=== PATIENT | female | born 1955 | race African-American/Black ===

== ENCOUNTER → 2017-01-03 | Outpatient (CLI) | payer MEDICARE ==
[~2017-01-03] MED LIST: BUPIVACAINE MPF 0.25% 10 ML VIAL. ONE; DEXAMETHASONE SOD PHOS 4 MG/ML VIAL ONE; LIDOCAINE 1% PF 30 ML VIAL. ONE
== END | disposition home or self-care (01) ==
LOC: SURG 12:33
PROVIDERS: ATTEND Anesthesiology
DX: M46.96 Unspecified inflammatory spondylopathy, lumbar region (principal); J45.909 Unspecified asthma, uncomplicated; I10 Essential (primary) hypertension; M19.91 Primary osteoarthritis, unspecified site; Z72.0 Tobacco use
CPT/HCPCS: 64635; 64636; 82947; J1100; J2001; J3490

== ENCOUNTER → 2017-01-17 | Outpatient (CLI) | payer MEDICARE ==
[~2017-01-17] MED LIST changes: +IV NORMAL SALINE 250ML 250 ML ONE; +LIDOCAINE (700MG/PATCH) PATCH. ONE; +MIDAZOLAM HCL PF 2 MG/2 ML VIAL. ONE
== END | disposition home or self-care (01) ==
LOC: SURG 11:51
PROVIDERS: ATTEND Anesthesiology
DX: M47.816 Spondylosis without myelopathy or radiculopathy, lumbar region (principal); I10 Essential (primary) hypertension; M19.90 Unspecified osteoarthritis, unspecified site; J45.909 Unspecified asthma, uncomplicated; F17.200 Nicotine dependence, unspecified, uncomplicated
CPT/HCPCS: 64635; 64636; 82947; J1100; J2001; J2250; J3010; J3490; J7050

== ENCOUNTER → 2018-10-03 | Outpatient (CLI) | payer MEDICARE, OTHER | END | disposition home or self-care (01) | LOC: SURG 08:56 | PROVIDERS: ATTEND Anesthesiology Pain Medicine | DX: M79.605 Pain in left leg (principal); I10 Essential (primary) hypertension; E11.9 Type 2 diabetes mellitus without complications; K21.9 Gastro-esophageal reflux disease without esophagitis; J45.909 Unspecified asthma, uncomplicated; Z91.018 Allergy to other foods; Z79.899 Other long term (current) drug therapy | CPT/HCPCS: 99214 ==

== ENCOUNTER → 2018-10-03 | Outpatient (CLI) | payer OTHER ==
--- NOTE | 2018-10-03 16:03 | RAD ---
EXAM: HIP LEFT 2 VIEW. HISTORY: Left hip pain. COMPARISON: None. FINDINGS: No fractures are identified. The joint spaces and alignment of the left hip are maintained. IMPRESSION: 1. No fracture or clear degenerative change. Electronically signed by: Sumit Tayolr MD (10/03/2018 4:00 PM) [facility]
== END | disposition home or self-care (01) ==
LOC: DXRAD 09:49
PROVIDERS: ATTEND Anesthesiology Pain Medicine
DX: M25.552 Pain in left hip (principal)
CPT/HCPCS: 73502

== ENCOUNTER → 2020-01-03 | Outpatient (CLI) | payer BC, MEDICARE ==
--- NOTE | 2020-01-03 13:34 | RAD ---
Cervical spine 4 views: Reason for examination: Upper back pain and chronic low back pain. The vertebral bodies of the cervical spine are normally aligned anteriorly and posteriorly. The odontoid process appears to be intact and normally centered between the lateral masses of C1. Posterior elements are intact. The intervertebral discs are maintained. There is a small ossific density anterior to the C5-6 disc space which has a corticated chronic appearance. Prevertebral soft tissues are normal. IMPRESSION: No acute abnormality in the cervical spine. Lumbar spine 3 views: The vertebral bodies of the lumbar spine are normally aligned anteriorly and posteriorly. No acute fracture or subluxation is seen. Posterior elements appear to be intact. There are however some degenerative changes with hypertrophic spurring and mild loss of disc height at the L3-4, L4-5 and L5-S1 disc levels. No abnormality seen at the sacrum or sacroiliac joints. IMPRESSION: Degenerative changes from L3 through S1 with mild loss of disc height. No acute abnormality in the lumbar spine. Electronically signed by: Veronica Carroll MD (01/03/2020 1:31 PM) [facility]
== END | disposition home or self-care (01) ==
LOC: PMG 09:08
PROVIDERS: ATTEND Family Medicine
DX: M47.817 Spondylosis without myelopathy or radiculopathy, lumbosacral region (principal); M54.2 Cervicalgia; G89.29 Other chronic pain
CPT/HCPCS: 72040; 72100

== ENCOUNTER 2020-03-12 15:52 | Emergency (ER) | payer BC, MEDICARE ==
[~2020-03-12] VITALS: Ht 162.6 cm; Wt 75.9 kg
[2020-03-12 15:55] VITALS: BP 132/65
--- NOTE | 2020-03-12 16:34 | PHYS DOC ---
Adult General Chief Complaint Chief Complaint: LOWER EXT PAIN [facility] HPI Patient is a 64-year-old AA female who presents to the emergency department with complaints of left foot pain after she fell down 5 steps today. Patient states that her foot is swollen and tender to touch. She denies any ankle pain, knee pain, or hip pain. Patient states she is not able to bear weight because of the pain. She reports that she has small abrasions to her bilateral knees but but denies any decreased range of motion of her knees. She denies any head, neck, or back pain. She currently rates her pain 10 out of 10 on the pain scale, she denies any alleviating factors, the pain is worse with weightbearing and movement. (ASHIA GRAVES APRN) Review of Systems Review of Systems Complete review of systems is negative unless otherwise documented in the HPI (ASHIA GRAVES APRN) Physical Exam Physical Exam Physical exam as documented below this line.. Constitutional: Well developed, well nourished, no acute distress, non-toxic appearance. [] HENT: Normocephalic, atraumatic, bilateral external ears normal, nose normal. [] Eyes: PERRLA, EOMI, conjunctiva normal, no discharge. [] Neck: Normal range of motion, no stridor. [] Cardiovascular:Heart rate regular rhythm Lungs & Thorax: Respirations even and unlabored, no retractions, no respiratory distress Skin: Warm, dry, no erythema, no rash; abrasions to bilateral without any bleeding [] Extremities: Left foot: Tenderness to palpation over the midfoot, no crepitus, no obvious deformity, 1+ edema, 2+ palpable pulse, no cyanosis, ROM intact Neurologic: Alert and oriented X 3, no focal deficits noted. [] Psychologic: Affect normal, judgement normal, mood normal. [] (ASHIA GRAVES APRN) EKG EKG [] (ISAI BAKER DO) Radiology/Procedures Radiology/Procedures [] (ISAI BAKER DO) Radiology/Procedures PROCEDURE: FOOT LEFT 3V Three-view left foot radiographs 03/12/2020 CLINICAL HISTORY: Left foot pain after falling. AP, lateral and oblique digital radiographs of the left foot were obtained. No fracture or dislocation of the left foot is seen. Mild to moderate degenerative changes are seen throughout the interphalangeal joints and first MTP joint of the left foot. Moderate enthesophyte formation is seen involving the posterior left calcaneus. IMPRESSION: No fracture or dislocation of the left foot is seen. (ASHIA GRAVES APRN) Heart Score Risk Factors: Risk Factors: DM, Current or recent (<one month) smoker, HTN, HLP, family history of CAD, obesity. Risk Scores: Risk Factors: DM, Current or recent (<one month) smoker, HTN, HLP, family history of CAD, obesity. (ISAI BAKER DO) Course & Med Decision Making Course & Med Decision Making Discussed case with LEADING FIREFIGHTER, I agree to note and plan as written (ISAI BAKER DO) Dragon Disclaimer Dragon Disclaimer This electronic medical record was generated, in whole or in part, using a voice recognition dictation system. (ISAI BAKER DO) Attending Co-Sign The patient was seen and interviewed as well as examined at the bedside. The chart was reviewed. The case was discussed. Agree with the plan of care. (ISAI BAKER DO) Attending Co-Sign The patient was seen and interviewed as well as examined at the bedside. The chart was reviewed. The case was discussed. Agree with the plan of care. (MT MTZ DO) Departure Departure: Impression: Primary Impression: Contusion of left foot, initial encounter Additional Impression: Acute pain of left foot Disposition: 01 DC HOME SELF CARE/HOMELESS Condition: STABLE Referrals: CHON ROSAS MD (PCP) AL SANCHEZ MD Patient Instructions: Foot Contusion, [id number] Additional Instructions: Fill prescription(s) and use as directed. Recommend application of ice, elevation, and rest of affected extremity. Use the crutches that were provided for ambulation, weightbearing as tolerated. Wear the Bipin wrap and postop shoe that were applied until follow-up appointment with your primary care doctor or Dr. Sanchez, call in the morning to make an appointment for next week. Return to the ER if your symptoms worsen. Scripts Naproxen (NAPROXEN) 500 Mg Tablet 1 TAB PO BID for pain for 10 Days, #20 TAB 0 Refills Prov: ASHIA GRAVES APRN 03/12/20 Problem Qualifiers ISAI BAKER DO Mar 12, 2020 16:34 ASHIA GRAVES APRN Mar 12, 2020 19:48 MT MTZ DO Mar 12, 2020 23:14
--- NOTE | 2020-03-12 19:38 | RAD ---
Three-view left foot radiographs 03/12/2020 CLINICAL HISTORY: Left foot pain after falling. AP, lateral and oblique digital radiographs of the left foot were obtained. No fracture or dislocation of the left foot is seen. Mild to moderate degenerative changes are seen throughout the interphalangeal joints and first MTP joint of the left foot. Moderate enthesophyte formation is seen involving the posterior left calcaneus. IMPRESSION: No fracture or dislocation of the left foot is seen. Electronically signed by: Dieter Michelle MD (03/12/2020 7:35 PM) [id number]
[2020-03-12] MEDS ORDERED: NAPROXEN 500 MG TABLET PO ONE (19:45)
[2020-03-12] MEDS ORDERED: NAPR-514 PO (19:47)
== END 2020-03-12 20:10 | disposition home or self-care (01) ==
LOC: ER 15:52
DX: S90.32XA Contusion of left foot, initial encounter (principal); S80.212A Abrasion, left knee, initial encounter; S80.211A Abrasion, right knee, initial encounter; W10.8XXA Fall (on) (from) other stairs and steps, initial encounter; Y93.89 Activity, other specified; Y92.89 Other specified places as the place of occurrence of the external cause; Y99.8 Other external cause status
CPT/HCPCS: 73630; 99283; 99284

== ENCOUNTER → 2020-04-03 | Outpatient (CLI) | payer MEDICARE ==
[2020-03-12 15:55] VITALS: BP 132/65
[~2020-04-03] MED LIST changes: -BUPIVACAINE MPF 0.25% 10 ML VIAL. ONE; -DEXAMETHASONE SOD PHOS 4 MG/ML VIAL ONE; -IV NORMAL SALINE 250ML 250 ML ONE; -LIDOCAINE (700MG/PATCH) PATCH. ONE; -LIDOCAINE 1% PF 30 ML VIAL. ONE; -MIDAZOLAM HCL PF 2 MG/2 ML VIAL. ONE; +NAPR-514 PO
--- NOTE | 2020-04-03 18:12 | RAD ---
EXAM: HAND RIGHT 3V 04/03/2020 12:00 AM CLINICAL INDICATION:Chronic Palm pain. No known injury. COMPARISON:None TECHNIQUE:3 views of the right hand FINDINGS:No acute fracture or malalignment. Bone mineralization is normal. Small supply to the thumb interphalangeal joint and second metacarpal head. Questionable small erosion at the second metacarpal head. No focal soft tissue abnormality. 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 No soft tissue abnormality. Electronically signed by: Lynda Beard MD (04/03/2020 6:09 PM) [id number]
== END ==
LOC: RAD 11:33
PROVIDERS: ATTEND Family Medicine
DX: M19.041 Primary osteoarthritis, right hand (principal)
CPT/HCPCS: 73130

== ENCOUNTER → 2020-07-09 | Outpatient (CLI) | payer MEDICARE, BC ==
[~2020-07-09] MED LIST changes: +IOHEXOL 240 MG/ML 50ML VIAL. ONE; +IOHEXOL 300 MG/ML 75 ML VIAL. IV ONE
[2020-07-09] MEDS: IOHEXOL 240 MG/ML 50ML VIAL. PO ONE (11:30)
[2020-07-09 11:39] LABS: HEMOGLOBIN ISTAT 13.3 gm/dL; POTASSIUM ISTAT 4.3 mmol/L (3.5-5.0)
[2020-07-09] MEDS: IOHEXOL 350 MG/ML 100 ML VIAL. IV ONE (12:11)
--- NOTE | 2020-07-09 12:30 | RAD ---
EXAM: Abdomen and pelvis CT with intravenous contrast. HISTORY: Flank pain. TECHNIQUE: Computed tomographic images of the abdomen and pelvis were obtained following the administ ration of intravenous contrast. Multiplanar reformatting was performed. *One or more of the following individualized dose reduction techniques were utilized for this examina tion: 1. Automated exposure control. 2. Adjustment of the mA and/or kV according to patient size. 3. Use of iterative reconstruction technique. COMPARISON: None. FINDINGS: Evaluation of the lower thorax demonstrates minimal left basilar atelectasis or scarring. T here is no infiltrate or pleural effusion. No suspicious hepatic lesion is seen. There is fatty infil tration of the liver along the falciform ligament. The gallbladder is unremarkable. There is a slight ly prominent downstream pancreatic duct. No pancreatic lesion is seen. The spleen, stomach and adrenal glands are unremarkable. There are 10 mm and [address] within the right kidney. There is a prominent bilateral renal collecting system. There is no estefanía hydronephrosis. There is a calcification along the course of the distal right ureter which is vascul ar in appearance. There is moderate colonic stool. There are few distal colonic diverticula. There is no evidence of cary wel obstruction. There is a tortuous abdominal aorta. There is no lymphadenopathy. The bladder, uteru s and adnexal regions are unremarkable. There is degenerative change throughout the visualized spine. There is no acute or suspicious osseous lesion. IMPRESSION: 1. No convincing acute abdominal or pelvic finding. 2. Prominent lateral renal collecting system likely due to the hydration status of patient. No convin cing obstructing lesion is seen. There are small double appearing right renal cyst. Follow-up is not routinely recommended for simple cysts. 3. Distal colonic diverticulosis. Electronically signed by: Namrata Lobato MD (07/09/2020 12:27 PM) [id number]
== END ==
LOC: CT 10:55
PROVIDERS: ATTEND Family Medicine
DX: K57.30 Diverticulosis of large intestine without perforation or abscess without bleeding (principal); N28.1 Cyst of kidney, acquired
CPT/HCPCS: 36415; 74177; 80047; Q9966; Q9967

== ENCOUNTER 2021-09-19 16:50 | Emergency (ER) | payer MEDICARE, MEDICAID ==
[~2021-09-19] VITALS: Ht 162.6 cm; Wt 75.9 kg
[~2021-09-19 16:50] MED LIST changes: -IOHEXOL 240 MG/ML 50ML VIAL. ONE; -IOHEXOL 300 MG/ML 75 ML VIAL. IV ONE
--- NOTE | 2021-09-19 17:22 | PHYS DOC ---
Past History Past Medical History: Diabetes, Hypertension (MT MTZ DO) Past Surgical History: (MT MTZ DO) Alcohol Use: None (MT MTZ DO) General Adult EDM: Chief Complaint: General Complaint HPI: HPI: 66-year-old female presents with concern about her blood pressure. She states that she was feeling shaky today and was concerned her blood pressure might be high. She took her blood pressure and the systolic was which she expected in the mid 120s, but her diastolic was almost 90. She states that she is never this high but usually in the 60s. She does take amlodipine. She did not take this medication until after 1600 today on accident. She usually takes it between 8 9 in the morning. The patient appears to be upset about the way she feels but not able to fully explain to me what it is she is worried about. She is only on hypertension medication. She has no other known significant medical problems. (MT MTZ DO) Review of Systems: Review of Systems: Constitutional: Denies fever or chills Eyes: Denies change in visual acuity HENT: Denies nasal congestion or sore throat Respiratory: Denies cough or shortness of breath Cardiovascular: Denies chest pain or edema GI: Denies abdominal pain, nausea, vomiting, bloody stools or diarrhea : Denies dysuria Musculoskeletal: Denies back pain or joint pain Integument: Denies rash Neurologic: Denies headache, focal weakness or sensory changes Endocrine: Denies polyuria or polydipsia Lymphatic: Denies swollen glands Psychiatric: Denies depression or anxiety (MT MTZ DO) Allergies: Allergies: Allergies Coded Allergies Type Severity Reaction Last Updated Verified No Known Drug Allergies 03/12/20 No (MT MTZ DO) Physical Exam: PE: Constitutional: Well developed, well nourished, obese, no acute distress, non- toxic appearance. [] HENT: Normocephalic, atraumatic, bilateral external ears normal, oropharynx moist, no oral exudates, nose normal. [] Eyes: PERRLA, EOMI, conjunctiva normal, no discharge. [] Neck: Normal range of motion, no tenderness, supple, no stridor. [] Cardiovascular: Heart rate 56, regular rhythm, no murmur [] Lungs & Thorax: Bilateral breath sounds clear to auscultation [] Abdomen: Bowel sounds normal, soft, no tenderness, no masses, no pulsatile masses. [] Skin: Warm, dry, no erythema, no rash. [] Back: No tenderness, no CVA tenderness. [] Extremities: No tenderness, no cyanosis, no clubbing, ROM intact, no edema. [] Neurologic: Alert and oriented X 3, normal motor function, normal sensory function, no focal deficits noted. [] Psychologic: Affect normal, judgement normal, mood anxious. [] (MT MTZ DO) EKG: EKG: Sinus rhythm, rate 64, normal axis, no ST elevation or depression. [] (MT MTZ DO) Radiology/Procedures: Radiology/Procedures: [] (MT MTZ DO) Heart Score: C/O Chest Pain: N/A Risk Factors: Risk Factors: DM, Current or recent (<one month) smoker, HTN, HLP, family history of CAD, obesity. Risk Scores: Score 0 - 3: 2.5% MACE over next 6 weeks - Discharge Home Score 4 - 6: 20.3% MACE over next 6 weeks - Admit for Clinical Observation Score 7 - 10: 72.7% MACE over next 6 weeks - Early Invasive Strategies (MT MTZ DO) Course & Med Decision Making: Course & Med Decision Making Pertinent Labs and Imaging studies reviewed. (See chart for details) The patient's blood pressure on arrival was well within normal limits. Her EKG is unremarkable. The rest the patient's work-up is pending. I am signing the patient out to the nightclub manager at 1800. [] (MT MTZ DO) Course & Med Decision Making Patient care handed off to me at checkout pending evaluation and disposition. Patient awake alert and oriented in no acute distress. Asymptomatic. Patient's troponin slightly elevated with a relatively normal EKG. Discussed all findin gs with patient and recommended at least observation in the ED for a second and/or third troponin and probable admission to the hospital. Patient stated that she wants to just go on home and call her primary care doctor morning. Had a long discussion with patient about the risks including significant illnesses, heart attack, stroke, short-term and long-term disability and even . Patient states that she was feeling well, would follow-up with her doctor tomorrow and come back to the emergency department if she started feeling bad again. Advised to call her primary care physician in the morning immediately to set up an immediate follow-up. Gave strict return precautions to the ED. Patient grateful, verbalized understanding and signed out AMA. (MATTHIEU JAY MD) Rony Disclaimer: Rony Disclaimer: This electronic medical record was generated, in whole or in part, using a voice recognition dictation system. (MT MTZ DO) Departure Departure: Impression: Primary Impression: Elevated troponin Additional Impression: Hypoglycemia Disposition: LEFT AGAINST MEDICAL ADVICE Referrals: CHON ROSAS MD (PCP) MT MTZ DO September 19, 2021 17:22 MATTHIEU JAY MD September 19, 2021 20:27
[2021-09-19 18:16] LABS: BASO # 0.1 x10^3/uL (0.0-0.2); BASO % 1 % (0-3); EOS # 0.5 x10^3/uL (0.0-0.7); EOS % 4 % (0-3); HEMATOCRIT 34.6 % (36.0-47.0); HEMOGLOBIN 11.1 g/dL (12.0-15.5); LYMPH # 3.1 x10^3/uL (1.0-4.8); LYMPH % 28 % (24-48); MEAN CORPUSCULAR HEMOGLOBIN 26 pg (25-35); MEAN CORPUSCULAR HGB CONC 32 g/dL (31-37); MEAN CORPUSCULAR VOLUME 82 fL (79-100); MONO # 0.8 x10^3/uL (0.0-1.1); MONO % 7 % (0-9); NEUT # 6.7 x10^3uL (1.8-7.7); NEUT % 60 % (31-73); PLATELET COUNT 463 x10^3/uL (140-400); RED BLOOD COUNT 4.24 x10^6/uL (3.50-5.40); RED CELL DISTRIBUTION WIDTH 14.7 % (11.5-14.5); WHITE BLOOD COUNT 11.2 x10^3/uL (4.0-11.0)
--- NOTE | 2021-09-19 18:17 | RAD ---
EXAMINATION: XR CHEST 1V CLINICAL HISTORY: shaky. Chest pain. EXAM DATE/TIME: 09/19/2021 5:24 PM COMPARISON: 09/05/2013 FINDINGS: Lines, Tubes, and Devices: None. Cardiomediastinal Silhouette: Normal heart size. Lungs and Pleura: No evidence of focal airspace consolidation or pleural effusion. Probable right bas ilar subsegmental atelectasis and/or scarring. Pulmonary vasculature unremarkable. Bones and Soft Tissues: Degenerative changes and slight dextroconvex curvature in the thoracic spine. IMPRESSION: No definitive evidence of acute cardiopulmonary abnormality. Probable right basilar subsegmental atel ectasis and/or scarring. Electronically signed by: Arcenio Evans DO (09/19/2021 6:15 PM) MATEO
--- NOTE | 2021-09-19 18:23 | RAD ---
Exam Date: 09/19/2021 5:[address] HEAD/BRAIN WO Indication: Reason: AMS / Spl. Instructions: / History: . TECHNIQUE: Head CT was performed without intravenous contrast. One or more of the following dose re duction techniques were utilized: *Automated exposure control (AEC) *Adjustment of mA and/or kV according to patient size *Use of iterative reconstruction technique *CT scan done according to ALARA, or ALARA/IMAGE GENTLY FINDINGS: The ventricles and sulci are normal for the patient's stated age. There is no evidence of acute int racranial hemorrhage, extra-axial collection, mass effect, midline shift, or acute territorial infarc t. No lesion of the skull base or the calvarium is seen. The visualized paranasal sinuses, mastoid ai r cells and orbits are normal in appearance. IMPRESSION: No evidence for acute intracranial abnormality. Electronically signed by: Regulo Nash MD (09/19/2021 6:21 PM) [id number]
[2021-09-19 18:26] LABS: CALCIUM 9.3 mg/dL (8.5-10.1); CREATININE 1.4 mg/dL (0.6-1.0); GFR 45.7; POTASSIUM 4.1 mmol/L (3.5-5.1)
[2021-09-19 18:33] LABS: ALBUMIN 3.5 g/dL (3.4-5.0); ALBUMIN/GLOBULIN RATIO 0.9 (1.0-1.7); TOTAL BILIRUBIN 0.2 mg/dL (0.2-1.0); TOTAL PROTEIN 7.5 g/dL (6.4-8.2)
[2021-09-19] MEDS: ASPIRIN CHEWABLE 81 MG TABLET. PO ONE (19:05)
[2021-09-19 19:13] LABS: BARBITURATES NEG (NEG); BENZODIAZEPINES NEG (NEG); CANNABINOIDS NEG (NEG); COCAINE NEG (NEG); METHADONE NEG (NEG); OPIATES NEG (NEG); PHENCYCLIDINE NEG (NEG)
[2021-09-19 19:19] LABS: AMPHETAMINE/METHAMPHETAMINE NEG (NEG)
[2021-09-19 19:20] LABS: BACTERIA,URINE 0 /HPF (0-FEW); CLARITY,URINE CLEAR; COLOR,URINE YELLOW; GLUCOSE,URINE NEG (NEG); NITRITE,URINE NEG (NEG); RBC,URINE 0 /HPF (0-2); SQUAMOUS EPITHELIAL CELL,UR OCC /LPF; UROBILINOGEN,URINE 0.2 mg/dL (0.2 mg/dL); WBC,URINE 0 /HPF (0-4)
[2021-09-19 20:15] VITALS: BP 126/67
== END 2021-09-19 23:00 | disposition left against medical advice (07) ==
LOC: ER 16:50
DX: R77.8 Other specified abnormalities of plasma proteins (principal); E11.649 Type 2 diabetes mellitus with hypoglycemia without coma; I10 Essential (primary) hypertension
CPT/HCPCS: 36415; 70450; 71045; 80053; 80307; 81001; 82947; 83880; 84484; 85025; 85379; 85610; 85730; 93005; 99285